=== PATIENT | male | born 1995 | race African-American/Black ===

== ENCOUNTER 2016-10-29 12:13 | Emergency (ER) | payer BC ==
--- NOTE | 2016-10-29 12:26 | ER Document Report ---
ED Medical Screen (RME) - General Stated Complaint: ABDOMINAL PAIN, BODY ACHES Notes: 21 yo male c/o acute onset mid abdominal pain, diarrhea, fever x 2 days. no chronic illness. TRAVEL OUTSIDE OF THE [place] IN LAST 30 DAYS: No - Related Data Allergies/Adverse Reactions: fresh fruit Allergy (Intermediate, Uncoded 09/08/15 18:43) Swelling of Throat Past Medical History Pulmonary Medical History: Reports: Hx Asthma - childhood Musculoskeltal Medical History: Reports Hx Musculoskeletal Trauma Past Surgical History: Reports: Hx Myringotomy, Hx Oral Surgery - bx of mouth - Immunizations Hx Diphtheria, Pertussis, Tetanus Vaccination: Yes Physical Exam - Vital signs Vitals: Temp Pulse Resp BP Pulse Ox 97.8 F 80 16 142/94 H 100 10/29/16 12:23 10/29/16 12:23 10/29/16 12:23 10/29/16 12:23 10/29/16 12:23 Course - Vital Signs Vital signs: Temp Pulse Resp BP Pulse Ox 97.8 F 80 16 142/94 H 100 10/29/16 12:23 10/29/16 12:23 10/29/16 12:23 10/29/16 12:23 10/29/16 12:23
[2016-10-29 13:27] LABS: ABSOLUTE EOSINOPHILS # (AUTO) 0.1 10^3/uL (0.0-0.6); ABSOLUTE LYMPHOCYTES (AUTO) 0.9 10^3/uL (0.5-4.7); ABSOLUTE MONOCYTES (AUTO) 0.5 10^3/uL (0.1-1.4); ABSOLUTE NEUT (AUTO) 2.8 10^3/uL (1.7-8.2); BASOPHILS % (AUTO) 0.4 % (0-2); EOSINOPHILS % (AUTO) 2.8 % (0-6); HEMATOCRIT 45.7 % (37.9-51.0); HEMOGLOBIN 14.8 g/dL (13.5-17.0); HGB HCT DIFFERENCE -1.3; LYMPHOCYTES % (AUTO) 20.8 % (13-45); MEAN CORPUSCULAR HEMOGLOBIN 30.5 pg (27.0-33.4); MEAN CORPUSCULAR HGB CONC 32.5 g/dL (32.0-36.0); MEAN CORPUSCULAR VOLUME 94 fl (80-97); MONOCYTES % (AUTO) 10.6 % (3-13); RED BLOOD COUNT 4.86 10^6/uL (4.35-5.55); RED CELL DISTRIBUTION WIDTH 12.8 % (11.5-14.0); SEGMENTED NEUTROPHILS % (AUTO) 65.4 % (42-78); WHITE BLOOD COUNT 4.3 10^3/uL (4.0-10.5)
[2016-10-29 13:45] LABS: ALANINE AMINOTRANSFERASE 66 U/L (21-72); ALBUMIN 4.2 g/dL (3.5-5.0); ALKALINE PHOSPHATASE 42 U/L (38-126); ANION GAP 10 (5-19); ASPARTATE AMINO TRANSFERASE 40 U/L (17-59); BILIRUBIN,TOTAL 2.1 mg/dL (0.2-1.3); BLOOD UREA NITROGEN 11 mg/dL (7-20); CALCIUM 9.7 mg/dL (8.4-10.2); CARBON DIOXIDE 32 mmol/L (22-30); CHLORIDE 99 mmol/L (98-107); CREATININE RESULT 1.15 mg/dL (0.52-1.25); GLUCOSE 80 mg/dL (75-110); POTASSIUM 4.3 mmol/L (3.6-5.0); SODIUM 141.2 mmol/L (137-145); TOTAL PROTEIN 7.8 g/dL (6.3-8.2)
[2016-10-29 13:56] LABS: APPEARANCE,URINE CLEAR; BILIRUBIN,URINE NEGATIVE (NEGATIVE); GLUCOSE, URINE NEGATIVE (NEGATIVE); KETONES,URINE TRACE mg/dL (NEGATIVE); LEUKOCYTE ESTERASE,URINE NEGATIVE (NEGATIVE); NITRITE,URINE NEGATIVE (NEGATIVE); PROTEIN,URINE NEGATIVE (NEGATIVE); URINE SPECIFIC GRAVITY 1.017; UROBILINOGEN,URINE NEGATIVE mg/dL (<2.0)
--- NOTE | 2016-10-29 14:32 | ER Document Report ---
ED General - General Chief Complaint: Abdominal Pain Stated Complaint: ABDOMINAL PAIN, BODY ACHES TRAVEL OUTSIDE OF THE [place] IN LAST 30 DAYS: No - HPI Patient complains to provider of: diarrhea abdominal pain Notes: Is coming in with abdominal pain diarrhea started approximately a few hours prior to his arrival here. Patient states multiple sick contacts at his workplace. Patient denies fevers chills nausea vomiting. Patient denies any recent antibiotics use. Patient otherwise is nontoxic looking upon his evaluation. - Related Data Allergies/Adverse Reactions: fresh fruit Allergy (Intermediate, Uncoded 09/08/15 18:43) Swelling of Throat Past Medical History - Social History Smoking Status: Unknown if Ever Smoked Family History: DM, Malignancy Pulmonary Medical History: Reports: Hx Asthma - childhood Musculoskeltal Medical History: Reports Hx Musculoskeletal Trauma Past Surgical History: Reports: Hx Myringotomy, Hx Oral Surgery - bx of mouth - Immunizations Hx Diphtheria, Pertussis, Tetanus Vaccination: Yes Review of Systems - Review of Systems Constitutional: No symptoms reported EENT: No symptoms reported Cardiovascular: No symptoms reported Respiratory: No symptoms reported Gastrointestinal: Abdominal pain, Diarrhea Genitourinary: No symptoms reported Male Genitourinary: No symptoms reported Musculoskeletal: No symptoms reported Skin: No symptoms reported Hematologic/Lymphatic: No symptoms reported Neurological/Psychological: No symptoms reported Physical Exam - Vital signs Vitals: Temp Pulse Resp BP Pulse Ox 97.8 F 80 16 142/94 H 100 10/29/16 12:23 10/29/16 12:23 10/29/16 12:23 10/29/16 12:23 10/29/16 12:23 Interpretation: Normal - General General appearance: Appears well, Alert - HEENT Head: Normocephalic, Atraumatic Eyes: Normal Pupils: PERRL - Respiratory Respiratory status: No respiratory distress Chest status: Nontender Breath sounds: Normal Chest palpation: Normal - Cardiovascular Rhythm: Regular Heart sounds: Normal auscultation Murmur: No - Abdominal Inspection: Normal Distension: No distension Bowel sounds: Normal Tenderness: Nontender Organomegaly: No organomegaly - Back Back: Normal, Nontender - Extremities General upper extremity: Normal inspection, Nontender, Normal color, Normal ROM , Normal temperature General lower extremity: Normal inspection, Nontender, Normal color, Normal ROM , Normal temperature, Normal weight bearing. No: Chai's sign - Neurological Neuro grossly intact: Yes Cognition: Normal Orientation: AAOx4 [place] Coma Scale Eye Opening: Spontaneous [place] Coma Scale Verbal: Oriented [place] Coma Scale Motor: Obeys Commands [place] Coma Scale Total: 15 Speech: Normal Motor strength normal: LUE, RUE, LLE, RLE Sensory: Normal - Psychological Associated symptoms: Normal affect, Normal mood - Skin Skin Temperature: Warm Skin Moisture: Dry Skin Color: Normal Course - Re-evaluation Re-evalutation: 10/29/16 16:04 Lab work shows no critical etiology. Patient will be treated symptomatically. Patient was given a work note patient discharged home - Vital Signs Vital signs: Temp Pulse Resp BP Pulse Ox 99 F 77 18 129/75 H 99 10/29/16 14:40 10/29/16 14:40 10/29/16 14:40 10/29/16 14:40 10/29/16 14:40 - Laboratory Result Diagrams: 10/29/16 13:05 10/29/16 13:05 Laboratory results interpreted by me: 10/29/16 10/29/16 13:05 13:05 Carbon Dioxide 32 H Total Bilirubin 2.1 H Urine Ketones TRACE H Urine Blood SMALL H Discharge - Discharge Clinical Impression: Abdominal pain Qualifiers: Abdominal location: generalized Qualified Code(s): R10.84 - Generalized abdominal pain Diarrhea Qualifiers: Diarrhea type: unspecified type Qualified Code(s): R19.7 - Diarrhea, unspecified Condition: Good Disposition: HOME, SELF-CARE Instructions: Abdominal Pain ([facility]), Diarrhea, Nonspecific ([facility]) Additional Instructions: Please take medication as prescribed. Return to the ER symptoms worsen. Follow -up with your primary care provider. Prescriptions: Dicyclomine HCl [Bentyl 20 mg Tablet] 20 mg PO QID #30 tablet Promethazine HCl [Phenergan 25 mg Tablet] 1 - 2 tab PO Q6H PRN #20 tablet PRN Reason: Forms: Return to Work
[2016-10-29 15:10] VITALS: BP 129/75
== END 2016-10-29 14:40 | disposition home or self-care (01) ==
LOC: ER 12:13
DX: R10.84 Generalized abdominal pain (principal); R19.7 Diarrhea, unspecified; Z91.018 Allergy to other foods
CPT/HCPCS: 36415; 80053; 81001; 85025; 99284

== ENCOUNTER 2017-10-13 13:06 | Emergency (ER) | payer SELFPAY ==
--- NOTE | 2017-10-13 14:31 | ER Document Report ---
ED Skin Rash/Insect Bite/Abscs - General Chief Complaint: Rash Stated Complaint: RASH Time Seen by Provider: 10/13/17 14:02 Mode of Arrival: Ambulatory Information source: Patient TRAVEL OUTSIDE OF THE [place] IN LAST 30 DAYS: No - HPI Patient complains to provider of: Skin rash/lesion Onset: Other Notes: 22 yr old presents with a 3 weeks hx of a rash to left eye. Reports rash is itchy. rash has almost faded.has tried otc creams without full relief. denies cp , sob, n/v/d. Patient reports that he just acquired a new puppy. Reports he has seasonal allergies but does not take any roet-eyq-hugmohm medications. Denies any worsening of rash. Denies any drainage from rash. denies new foods, new mediations or new laundry detergent. denies fevers and chills. denies rash itches at night. Has been around family members during the holiday season for the last 3 weeks. hx of eczema as a child. - Related Data Allergies/Adverse Reactions: fresh fruit Allergy (Intermediate, Uncoded 10/13/17 13:08) Swelling of Throat Past Medical History - General Information source: Patient - Social History Smoking Status: Never Smoker Frequency of alcohol use: Social Family History: DM, Malignancy Patient has suicidal ideation: No Patient has homicidal ideation: No Pulmonary Medical History: Reports: Hx Asthma - childhood Renal/ Medical History: Denies: Hx Peritoneal Dialysis Musculoskeltal Medical History: Reports Hx Musculoskeletal Trauma Past Surgical History: Reports: Hx Myringotomy, Hx Oral Surgery - bx of mouth - Immunizations Hx Diphtheria, Pertussis, Tetanus Vaccination: Yes Review of Systems - Review of Systems Constitutional: See HPI Cardiovascular: No symptoms reported Respiratory: No symptoms reported Skin: See HPI, Rash -: Yes All other systems reviewed and negative Physical Exam - Vital signs Vitals: Temp Pulse Resp BP Pulse Ox 99.3 F 89 16 148/88 H 100 10/13/17 13:15 10/13/17 13:15 10/13/17 13:15 10/13/17 13:15 10/13/17 13:15 - Respiratory Respiratory status: No respiratory distress Chest status: Nontender Breath sounds: Normal Chest palpation: Normal - Cardiovascular Rhythm: Regular Heart sounds: Normal auscultation Pulses: Normal: Radial - Skin Skin Temperature: Warm Skin Moisture: Dry Skin Color: Normal Location of irregularity: Face - 2cm x 2cm area maculoapular rash. no erythema, no induration, swelling, satellite lesions or burrowing on trunk. no weeping ot drainage. no central clearing. Course - Vital Signs Vital signs: Temp Pulse Resp BP Pulse Ox 99.3 F 89 16 148/88 H 100 10/13/17 13:15 10/13/17 13:15 10/13/17 13:15 10/13/17 13:15 10/13/17 13:15 Discharge - Discharge Clinical Impression: Contact dermatitis Qualifiers: Contact dermatitis type: unspecified Contact dermatitis trigger: unspecified trigger Qualified Code(s): L25.9 - Unspecified contact dermatitis, unspecified cause Condition: Good Disposition: HOME, SELF-CARE Instructions: Contact Dermatitis ([facility]) Additional Instructions: Use cream as directed, use prudently around eyes for no longer than 4 days. Take prednisone as directed. Avoid any irritants. Take xckz-ose-amykwwe loratadine as directed for history of seasonal allergies. Monitor for any new laundry detergents, lotions, soaps, etc. follow-up with primary care provider within 1 week. Discussed the need to return to the ER for any new or worsening sx. Patient understands to take the Rx as directed. All questions answered. Patient comfortable with the decision to go home. Prescriptions: Loratadine 10 mg PO DAILY #30 tab.rapdis Prednisone 20 mg PO BID #10 tablet Triamcinolone Acetonide 15 gm TP BID #1 cream..g. Referrals: MARK PATIÑO MD [COMMUNITY BASED STAFF] - Follow up as needed
[2017-10-13 14:44] VITALS: BP 130/64
== END 2017-10-13 14:44 | disposition home or self-care (01) ==
LOC: ER 13:06
DX: L25.9 Unspecified contact dermatitis, unspecified cause (principal)
CPT/HCPCS: 99282

== ENCOUNTER 2017-12-13 16:24 | Emergency (ER) | payer SELFPAY ==
[2017-12-13 16:36] VITALS: BP 137/72
--- NOTE | 2017-12-13 17:12 | ER Document Report ---
HPI - HPI Pain Level: 1 Context: Patient is a 22-year-old male who presents emergency department with a rash on his face that is been persistent. He was diagnosed with contact dermatitis in October sent home on topical steroid cream and allergy medication which he states that there is been some improvement regarding the area over his nose but that the border has been well-defined. He has not followed up with primary care regarding this. He states it is not itchy, does not cause any pain, denies any burning, denies any issues with vision. Past Medical History - Social History Smoking Status: Never Smoker Chew tobacco use (# tins/day): No Frequency of alcohol use: Occasional Drug Abuse: None Family History: DM, Malignancy Patient has suicidal ideation: No Patient has homicidal ideation: No Pulmonary Medical History: Reports: Hx Asthma - childhood Renal/ Medical History: Denies: Hx Peritoneal Dialysis Musculoskeltal Medical History: Reports Hx Musculoskeletal Trauma Past Surgical History: Reports: Hx Myringotomy, Hx Oral Surgery - bx of mouth - Immunizations Hx Diphtheria, Pertussis, Tetanus Vaccination: Yes Vertical Provider Document - CONSTITUTIONAL Agree With Documented VS: Yes Notes: PHYSICAL EXAM GENERAL: Alert, interacts well. HEAD: Normocephalic, atraumatic. EYES: Pupils equal, round, and reactive to light. Extraocular movements intact. ENT: Oral mucosa moist, tongue midline. NEUROLOGICAL: Alert and oriented x4. Normal speech. PSYCH: Normal affect, normal mood. SKIN: Warm, dry, normal turgor. Rash is located the patient it is along the patient's nose extending under the left eye over the nasal bridge and under the right eye and extending up on in between bilateral eyebrows not extending over the eyelids. Normal in color with macular papular elevated border along the edges - INFECTION CONTROL TRAVEL OUTSIDE OF THE [place] IN LAST 30 DAYS: No - RESPIRATORY O2 Sat by Pulse Oximetry: 99 Course - Re-evaluation Re-evalutation: Will treat with a topical antifungal with instructions to follow-up with patient is a 22-year-old male who is hemodynamically stable, no acute distress and afebrile. Presentation today is consistent with a fungal cause likely due to tinea corporis origin. Dermatology in 2-4 weeks if symptoms do not improve. Otherwise discussed symptoms to be aware of indicating return to the emergency department and patient is stable for discharge home and agreeable to plan. - Vital Signs Vital signs: Temp Pulse Resp BP Pulse Ox 98.4 F 79 17 137/72 H 99 12/13/17 16:35 12/13/17 16:35 12/13/17 16:35 12/13/17 16:35 12/13/17 16:35 Discharge - Discharge Clinical Impression: Tinea corporis Condition: Good Disposition: HOME, SELF-CARE Instructions: Skin Fungus ([facility]) Additional Instructions: Cream: Apply to affected area once daily for 1-3 weeks, until symptoms resolved. If no improvement, follow up with dermatology Prescriptions: Terbinafine [Lamisil At] 12 gm TP ASDIR PRN #1 gel..gm. PRN Reason: Referrals: RAYMOND WATKINS DO [ACTIVE STAFF] - Follow up in 1 month
== END 2017-12-13 17:22 | disposition home or self-care (01) ==
LOC: ER 16:24
DX: B35.4 Tinea corporis (principal)
CPT/HCPCS: 99282

== ENCOUNTER 2018-01-04 14:24 | Emergency (ER) | payer OTHER ==
[2018-01-04] MEDS ORDERED: DEXAMETHASONE SOD PHOS INJ 10 MG/1 ML VIAL IM ONE (15:04)
[2018-01-04] MEDS ORDERED: KETOROLAC TROMETHAMINE 60 MG/2 ML SDV IM ONE (15:04)
[2018-01-04] MEDS ORDERED: PSEUDOEPHEDRINE HCL 30 MG TABLET PO ONE (15:05)
[2018-01-04] MEDS ORDERED: LORATADINE 10 MG TABLET PO ONE (15:05)
[2018-01-04] MEDS ORDERED: GUAIFENESIN 600 MG TABLET.SA PO ONE (15:05)
--- NOTE | 2018-01-04 15:17 | ER Document Report ---
ED ENT - General Chief Complaint: Sore Throat Stated Complaint: SORE THROAT Time Seen by Provider: 01/04/18 14:57 Mode of Arrival: Ambulatory Information source: Patient Notes: 22-year-old male presents to ED for complete cough and congestion cold symptoms with a sore throat that started Thursday. He states the sore throat got much worse today. He has not had a fever. He is in no acute distress he is speaking in full sentences alert and oriented walks with a steady gait. TRAVEL OUTSIDE OF THE [place] IN LAST 30 DAYS: No - HPI Onset: Other Onset/Duration: - Thursday Quality of pain: Achy, Dull Severity: Moderate Pain Level: 3 Context: Recent Illness Location of pain: Nose, Sinus, Throat Associated symptoms: Congestion, Cough, Runny nose, Sinus pain, Sinus drainage, Sore throat Similar symptoms previously: Yes - Related Data Allergies/Adverse Reactions: fresh fruit Allergy (Intermediate, Uncoded 12/13/17 16:32) Swelling of Throat Past Medical History - General Information source: Patient - Social History Smoking Status: Never Smoker Cigarette use (# per day): No Chew tobacco use (# tins/day): No Smoking Education Provided: No Frequency of alcohol use: Occasional Drug Abuse: None Occupation: Childcare Lives with: Spouse/Significant other Family History: Arthritis, DM, Malignancy. denies: CAD, COPD, CVA, Hyperlipidemia, Hypertension, Thyroid Disfunction Patient has suicidal ideation: No Patient has homicidal ideation: No Pulmonary Medical History: Reports: Hx Asthma - childhood EENT Medical History: Reports: None Endocrine Medical History: Reports: None Renal/ Medical History: Reports: None Malignancy Medical History: Reports None Musculoskeltal Medical History: Reports Hx Musculoskeletal Deformity, Reports Hx Musculoskeletal Trauma Skin Medical History: Reports None Psychiatric Medical History: Reports: None Traumatic Medical History: Reports: Hx Fractures - Left knee Infectious Medical History: Reports: None Past Surgical History: Reports: Hx Myringotomy, Hx Oral Surgery - bx of mouth, Hx Orthopedic Surgery - Left knee torn patella tendon, Other - Tear duct surgery - Immunizations Hx Diphtheria, Pertussis, Tetanus Vaccination: Yes Review of Systems - Review of Systems Constitutional: Recent illness EENT: Nose discharge, Sinus pressure, Sinus discharge, Throat pain Cardiovascular: No symptoms reported Respiratory: No symptoms reported Gastrointestinal: No symptoms reported Genitourinary: No symptoms reported Male Genitourinary: No symptoms reported Musculoskeletal: No symptoms reported Skin: No symptoms reported Hematologic/Lymphatic: No symptoms reported Neurological/Psychological: No symptoms reported -: Yes All other systems reviewed and negative Physical Exam - Vital signs Vitals: Temp Pulse Resp BP Pulse Ox 99.4 F 93 18 142/79 H 97 01/04/18 14:29 01/04/18 14:29 01/04/18 14:29 01/04/18 14:29 01/04/18 14:29 Interpretation: Normal - General General appearance: Appears well, Alert - HEENT Head: Normocephalic, Atraumatic Eyes: Normal Pupils: PERRL Ears: Normal External canal: Normal Tympanic membrane: Normal Sinus: Normal Nasal: Purulent discharge, Swelling Mouth/Lips: Normal Mucous membranes: Normal Pharynx: Erythema, Post nasal drainage. No: Exudate, Peritonsillar abscess, Retropharyngeal abscess, Tonsillar hypertrophy, Potential airway comprom. Neck: Normal - Respiratory Respiratory status: No respiratory distress Chest status: Nontender Breath sounds: Normal Chest palpation: Normal - Cardiovascular Rhythm: Regular Heart sounds: Normal auscultation Murmur: No - Abdominal Inspection: Normal Distension: No distension Bowel sounds: Normal Tenderness: Nontender Organomegaly: No organomegaly - Back Back: Normal, Nontender - Extremities General upper extremity: Normal inspection, Nontender, Normal color, Normal ROM , Normal temperature General lower extremity: Normal inspection, Nontender, Normal color, Normal ROM , Normal temperature, Normal weight bearing. No: Chai's sign - Neurological Neuro grossly intact: Yes Cognition: Normal Orientation: AAOx4 [place] Coma Scale Eye Opening: Spontaneous [place] Coma Scale Verbal: Oriented [place] Coma Scale Motor: Obeys Commands [place] Coma Scale Total: 15 Speech: Normal Motor strength normal: LUE, RUE, LLE, RLE Sensory: Normal - Psychological Associated symptoms: Normal affect, Normal mood - Skin Skin Temperature: Warm Skin Moisture: Dry Skin Color: Normal Course - Re-evaluation Re-evalutation: 01/04/18 20:20 Patient was treated with Claritin and Sudafed Mucinex with cough cold congestion Toradol Decadron for sore throat. Patient strep test was negative. He was discharged home with instructions on cough cold congestion. - Vital Signs Vital signs: Temp Pulse Resp BP Pulse Ox 99.4 F 87 18 124/80 97 01/04/18 16:31 01/04/18 16:31 01/04/18 16:31 01/04/18 16:31 01/04/18 16:31 Discharge - Discharge Clinical Impression: Sore throat (viral) URI (upper respiratory infection) Qualifiers: URI type: unspecified URI Qualified Code(s): J06.9 - Acute upper respiratory infection, unspecified Condition: Stable Disposition: HOME, SELF-CARE Instructions: Family Physicians / Practices Additional Instructions: UPPER RESPIRATORY ILLNESS: You have a viral infection of the respiratory passages -- a "cold." This common infection causes nasal congestion, drainage, and often sore throat and cough. It is highly contagious. The disease usually lasts about 10 to 14 days. There is no "cure" for the viral infection -- it must run its course. If there is a complication, such as bacterial infection in the nose, sinuses, middle ear, or bronchial tubes, antibiotics may be required. The antibiotics won't affect the virus. Drink plenty of fluids. A humidifier may help. An expectorant medication or decongestant may make you more comfortable. Use acetaminophen or ibuprofen for fever or aches. See the doctor if fever persists over two days, if there is any significant worsening of your symptoms, or if you simply fail to improve as expected. SORE THROAT: Sore throats may be caused by viruses, bacteria, or fungi. Most are due to a virus, and must get better on their own. Bacterial sore throats, particularly those due to "strep," need treatment with antibiotics. If an antibiotic is prescribed, be sure to take the medication for a full 10 days. Failure to take the antibiotic can result in complications such as rheumatic fever. Sometimes, an injection of antibiotics is given instead of pills or liquid. This single "shot" is equal in effectiveness to the oral medication. To relieve symptoms, take acetaminophen for pain. Sip clear liquids frequently, or eat popsicles or ice chips. Anesthetic sprays or lozenges may help. Make sure the air in the room is not too dry. Avoid using decongestants or antihistamines. Call the doctor if there is no improvement in two days, or if you have difficulty breathing, increasing throat pain, high fever, rash, or frequent vomiting. You were given Claritin 10 mg, Sudafed 30 mg, Mucinex 600 mg, as well as a Toradol and steroid injection for your cough cold congestion and sore throat. Your strep test is negative. This is a viral sore throat whenever we do a strep culture we always send a throat culture just to ensure that if the test is positive any kind of bacteria we will notify you and put you on antibiotic but at this time it does appear to be a viral sore throat. The medications I gave you are [id number] the Claritin and Sudafed Mucinex. Sudafed you will have to ask the pharmacist for. STEROID MEDICATION: You have been given a medicine of the cortisone/steroid class. This medication is used to control inflammation or allergy. It is usually only given for a short period of time, until the acute process subsides. There are usually no side effects from short-term use of cortisone-like medications. Some persons feel an increased sense of well-being and are not sleepy at bedtime. Long-term use of cortisone medications is best avoided, unless required for a severe condition. If your condition does not remit, or relapses after the course of corticosteroid medication, you should consult your physician. Toradol Injection You have been given an injection of ketorolac tromethamine (Toradol). This is an excellent, safe drug for pain control. It also has potent antiinflammatory action. You should have significant pain relief within about one hour. Toradol is not addicting and is non-sedating. It does not interfere with driving or work. Call or return if you develop itching, hives, shortness of breath, or rash. DECONGESTANT MEDICATION: A decongestant medicine has been suggested. Often this medicine is combined in the same tablet with an antihistamine or expectorant. This type of medicine is helpful in treating a bad cold or sinus condition, as well as in treatment of the nasal congestion of hay fever. It is not of much benefit for lung infections. Decongestant medicines are related to stimulants. They can cause an increase in blood pressure and heart rate. Persons with heart disease and high blood pressure should not take decongestants without discussing this with the physician. If you develop palpitations, chest pain, headache, or tremors, stop the medicine and consult your physician. COUGH-SUPPRESSANT & EXPECTORANT MEDICATION: You are to use a cough medication as needed for relief of symptoms. This medicine is a combination of an expectorant (to make the mucous thinner and more easily "coughed up") and a cough suppressant (to reduce the frequency of coughing). The cough-suppressant medicine is related to narcotics. You may experience mild nausea and sleepiness. Some patients who are very sensitive to narcotics may have stomach pain from this medicine. Taking the medicine with food reduces these side effects. Do not drive or work with machinery until you know how this medicine affects you. The expectorant should have no side effects. Iodine-containing expectorants (such as organidin) should not be taken by persons with active thyroid disease unless approved by your doctor. Call the doctor if you develop shortness of breath, hives, rash, itching, lightheadedness, or severe nausea and vomiting. USE OF ACETAMINOPHEN (Tylenol): Acetaminophen may be taken for pain relief or fever control. It's much safer than aspirin, offering a wider range of "safe" dosages. It is safe during . Some brand names are Tylenol, Panadol, Datril, Anacin 3, Tempra, and Liquiprin. Acetaminophen can be repeated every four hours. The following are maximum recommended dosages: >89 pounds or adults 650 mg to 900 mg Acetaminophen can be repeated every four hours. Maximum dose not to exceed 4000 mg a day. FOLLOW-UP CARE: If you have been referred to a physician for follow-up care, call the physician s office for an appointment as you were instructed or within the next two days. If you experience worsening or a significant change in your symptoms, notify the physician immediately or return to the Emergency Department at any time for re-evaluation. Forms: Elevated Blood Pressure, Return to Work
[2018-01-04 16:41] VITALS: BP 124/80
== END 2018-01-04 16:40 | disposition home or self-care (01) ==
LOC: ER 14:24
DX: J06.9 Acute upper respiratory infection, unspecified (principal); J02.9 Acute pharyngitis, unspecified; B97.89 Other viral agents as the cause of diseases classified elsewhere; R05 Cough; R09.81 Nasal congestion; R09.89 Other specified symptoms and signs involving the circulatory and respiratory systems; J45.909 Unspecified asthma, uncomplicated
CPT/HCPCS: 87070; 87880; 96372; 99283

== ENCOUNTER 2018-10-17 17:39 | Emergency (ER) | payer OTHER ==
[2018-10-17 20:07] LABS: ABSOLUTE BASOPHILS # (AUTO) 0.1 10^3/uL (0.0-0.2); ABSOLUTE EOSINOPHILS # (AUTO) 0.3 10^3/uL (0.0-0.6); ABSOLUTE MONOCYTES (AUTO) 0.8 10^3/uL (0.1-1.4); ABSOLUTE NEUT (AUTO) 4.6 10^3/uL (1.7-8.2); BASOPHILS % (AUTO) 1.2 % (0-2); EOSINOPHILS % (AUTO) 3.3 % (0-6); HEMATOCRIT 40.6 % (37.9-51.0); HEMOGLOBIN 13.6 g/dL (13.5-17.0); LYMPHOCYTES % (AUTO) 25.6 % (13-45); MEAN CORPUSCULAR HGB CONC 33.5 g/dL (32.0-36.0); MEAN CORPUSCULAR VOLUME 93 fl (80-97); MONOCYTES % (AUTO) 10.3 % (3-13); PLATELET COUNT 165 10^3/uL (150-450); RED BLOOD COUNT 4.39 10^6/uL (4.35-5.55); RED CELL DISTRIBUTION WIDTH 13.2 % (11.5-14.0); SEGMENTED NEUTROPHILS % (AUTO) 59.6 % (42-78); TOTAL CELLS COUNTED % (AUTO) 100 %; WHITE BLOOD COUNT 7.7 10^3/uL (4.0-10.5)
[2018-10-17] MEDS ORDERED: KETOROLAC TROMETHAMINE 60 MG/2 ML SDV IM ONE (20:09)
[2018-10-17 20:21] LABS: ALANINE AMINOTRANSFERASE 27 U/L (21-72); ALKALINE PHOSPHATASE 45 U/L (38-126); ANION GAP 9 (5-19); ASPARTATE AMINO TRANSFERASE 25 U/L (17-59); BILIRUBIN,DIRECT 0.1 mg/dL (0.0-0.4); BILIRUBIN,TOTAL 0.6 mg/dL (0.2-1.3); BLOOD UREA NITROGEN 11 mg/dL (7-20); CARBON DIOXIDE 26 mmol/L (22-30); CHLORIDE 105 mmol/L (98-107); GLUCOSE 99 mg/dL (75-110); LIPASE 27.2 U/L (23-300); SODIUM 139.8 mmol/L (137-145)
--- NOTE | 2018-10-17 21:42 | RADIOLOGY REPORT (SQ) ---
EXAM DESCRIPTION: US ABDOMEN LIMITED COMPLETED DATE/TME: 10/17/2018 19:34 CLINICAL HISTORY: 23 years, Male, upper abdominal pain Findings: Pancreas is not visualized due to shadowing. Aorta and IVC are within normal limits. Liver is within normal limits with no focal masses. No significant biliary dilatation with CBD measuring 2 mm. Gallbladder is unremarkable with no evidence for calculus, wall thickening or pericholecystic fluid. No right upper quadrant ascites. No right hydronephrosis. IMPRESSION: No evidence for cholelithiasis or cholecystitis.
--- NOTE | 2018-10-17 22:58 | ER Document Report ---
ED General - General Chief Complaint: Upper Abdominal Pain Stated Complaint: ABDOMINAL PAIN Time Seen by Provider: 10/17/18 19:25 Notes: Patient is a 23-year-old male without past medical history who presents with 2 days of intermittent right-sided abdominal pain. Patient states that the pain is along the right upper middle and lower abdomen. He states that it is a cramping, intermittently stabbing pain worsened by moving or bending over. Nothing improves the pain. Denies a history of similar pain in the past. He has been nauseated but has not had vomiting. No fever. No known abdominal trauma. The patient denies any history of similar symptoms in the past. He denies any prior abdominal surgical history. Denies any effect of food intake. Has not seen his primary care physician regarding today's concerns. TRAVEL OUTSIDE OF THE [place] IN LAST 30 DAYS: No - Related Data Allergies/Adverse Reactions: fresh fruit Allergy (Intermediate, Uncoded 12/13/17 16:32) Swelling of Throat Past Medical History - General Information source: Patient - Social History Smoking Status: Never Smoker Frequency of alcohol use: None Drug Abuse: None Lives with: Spouse/Significant other Family History: Arthritis, DM, Malignancy. denies: CAD, COPD, CVA, Hyperlipidemia, Hypertension, Thyroid Disfunction Patient has suicidal ideation: No Patient has homicidal ideation: No Pulmonary Medical History: Reports: Hx Asthma - childhood Renal/ Medical History: Denies: Hx Peritoneal Dialysis Musculoskeletal Medical History: Reports Hx Musculoskeletal Deformity, Reports Hx Musculoskeletal Trauma Traumatic Medical History: Reports: Hx Fractures - Left knee Past Surgical History: Reports: Hx Myringotomy, Hx Oral Surgery - bx of mouth, Hx Orthopedic Surgery - Left knee torn patella tendon, Other - Tear duct surgery - Immunizations Hx Diphtheria, Pertussis, Tetanus Vaccination: Yes Review of Systems - Review of Systems Notes: Constitutional: Negative for fever. HENT: Negative for sore throat. Eyes: Negative for visual changes. Cardiovascular: Negative for chest pain. Respiratory: Negative for shortness of breath. Gastrointestinal: Positive for abdominal pain and nausea Genitourinary: Negative for dysuria. Musculoskeletal: Negative for back pain. Skin: Negative for rash. Neurological: Negative for headaches, weakness or numbness. 10 point ROS negative except as marked above and in HPI. Physical Exam - Vital signs Vitals: Temp Pulse Resp BP Pulse Ox 99.4 F 101 H 16 146/87 H 98 10/17/18 17:45 10/17/18 17:45 10/17/18 17:45 10/17/18 17:45 10/17/18 17:45 Interpretation: Tachycardic - Resolved at the time of my assessment Notes: PHYSICAL EXAMINATION: GENERAL: Well-appearing, well-nourished and in no acute distress. HEAD: Atraumatic, normocephalic. EYES: Pupils equal round and reactive to light, extraocular movements intact, sclera anicteric, conjunctiva are normal. ENT: nares patent, oropharynx clear without exudates. Moist mucous membranes. NECK: Normal range of motion, supple without lymphadenopathy LUNGS: Breath sounds clear to auscultation bilaterally and equal. No wheezes rales or rhonchi. HEART: Regular rate and rhythm without murmurs ABDOMEN: Soft, mild tenderness the right upper, right middle and right lower abdomen without localization to any one quadrant, normoactive bowel sounds. No guarding, no rebound. No masses appreciated. EXTREMITIES: Normal range of motion, no pitting or edema. No cyanosis. NEUROLOGICAL: No focal neurological deficits. Moves all extremities spontaneously and on command. PSYCH: Normal mood, normal affect. SKIN: Warm, Dry, normal turgor, no rashes or lesions noted. Course - Re-evaluation Re-evalutation: 10/17/18 22:56 Patient is a well-appearing 23-year-old male who presents complaining of 2 days of intermittent right-sided abdominal pain. Describes it as a pain along the entirety of the right side of his. At time of my evaluation the patient is well in appearance and in no distress. At time of my evaluation he no longer has any tachycardia although initially his heart rate was 101. He is afebrile. On abdominal exam he does have some diffuse tenderness to the right upper middle and lower abdomen without rebound or guarding. No flank tenderness. He has no greater tenderness to the right lower quadrant in the right middle or right upper abdomen. Right upper quadrant ultrasound and labs are completely unremarkable. No leukocytosis. I have had a risks and benefits conversation with the patient regarding CT imaging of the abdomen and pelvis at this time. 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 We discussed the risks of radiation to the abdomen and pelvis. We discussed the alternative of close follow-up with their primary care physician for a recheck of the abdomen within 24 hours as well as reasons to return to the emergency department. After this conversation, the patient and his have elected to avoid CT imaging of the abdomen and pelvis at this time. They have capacity. They have verbalized the importance of close follow-up as well as reasons to return to the emergency department including worsening abdominal pain, fever, persistent vomiting, or any other symptoms that are worrisome to them. - Vital Signs Vital signs: Temp Pulse Resp BP Pulse Ox 98.1 F 61 17 133/78 H 97 10/17/18 23:09 10/17/18 23:09 10/17/18 23:09 10/17/18 23:09 10/17/18 23:09 - Laboratory Result Diagrams: 10/17/18 19:55 10/17/18 19:55 - Diagnostic Test Radiology reviewed: Reports reviewed Discharge - Discharge Clinical Impression: Right sided abdominal pain, Nausea Condition: Good Disposition: HOME, SELF-CARE Instructions: Observation for Appendicitis ([facility]) Additional Instructions: You were seen today for right-sided abdominal pain. Your blood work and right upper quadrant ultrasound are normal today. We did discuss the possibility of acute appendicitis as an alternative possibility of your abdominal pain. After our conversation, you have elected to go home and be monitored and return should you develop any worsening of your abdominal pain, vomiting, fever of greater than 100.4 F, or any worsening of any kind. He may take ibuprofen or Tylenol per box instructions as needed for pain. Please have a very low threshold to return to the emergency department. Forms: Return to Work
[2018-10-17 23:09] VITALS: BP 133/78
== END 2018-10-17 23:09 | disposition home or self-care (01) ==
LOC: ER 17:39
DX: R10.11 Right upper quadrant pain (principal); R10.31 Right lower quadrant pain; R11.0 Nausea; Z91.018 Allergy to other foods
CPT/HCPCS: 99284; 96372; 36415; 83690; 85025; 80053; 76705; J1885

== ENCOUNTER 2019-02-13 06:20 | Emergency (ER) | payer SELFPAY ==
[2019-02-13] MEDS ORDERED: ACETAMINOPHEN 325 MG TABLET PO ONE (08:36)
[2019-02-13 08:57] LABS: A TYPE INFLUENZA AG NEGATIVE (NEGATIVE); B INFLUENZA AG NEGATIVE (NEGATIVE)
[2019-02-13] MEDS ORDERED: AMOXICILLIN TR/POT CLAVULANATE 500-125 MG TAB PO ONE (09:10)
[2019-02-13] MEDS ORDERED: NORMAL SALINE 1000 ML 1,000 ML IV ONE (09:10)
[2019-02-13] MEDS ORDERED: IBUPROFEN 600 MG TABLET PO ONE (09:18)
[2019-02-13] MEDS ORDERED: LIDOCAINE 2% VISCOUS SOLN 20 ML UDCUP PO ONE (09:18)
[2019-02-13] MEDS ORDERED: MAG HYDROX/AL HYDROX/SIMETH SUSP 30 ML UDCUP PO ONE (09:18)
[2019-02-13] MEDS ORDERED: METOCLOPRAMIDE HCL ORAL SOLN 10 MG/10 ML UDCUP PO ONE (09:18)
--- NOTE | 2019-02-13 09:23 | ER Document Report ---
ED General - General Chief Complaint: Fever Stated Complaint: FEVER Time Seen by Provider: 02/13/19 09:02 Mode of Arrival: Ambulatory Information source: Patient, Parent Notes: 24-year-old male with no reported past medical history presents with complaint of body aches, sore throat, that started 2 days prior to arrival. Patient has not taken any medication for this. He denies ear pain, nausea, vomiting, difficulty swallowing, nasal drainage, cough, chest pain, shortness of breath, abdominal pain, back pain, dysuria, hematuria. Mother reports that the patient has had recurrent strep infections in the past. TRAVEL OUTSIDE OF THE [place] IN LAST 30 DAYS: No - HPI Onset: Other Onset/Duration: Gradual, Persistent Quality of pain: Achy, Burning Severity: Mild Associated symptoms: Body/muscle aches, Fever, Sore throat. denies: Chest pain, Nonproductive cough, Productive cough, Diarrhea, Earache, Nausea, Vomiting, Rhinnorhea, Sinus pain/drainage, Shortness of breath Exacerbated by: Denies Relieved by: Denies Similar symptoms previously: Yes Recently seen / treated by doctor: No - Related Data Allergies/Adverse Reactions: fresh fruit Allergy (Intermediate, Uncoded 02/13/19 06:23) Swelling of Throat Past Medical History - General Information source: Patient, Parent, [facility] Records - Social History Smoking Status: Never Smoker Chew tobacco use (# tins/day): No Frequency of alcohol use: Rare Drug Abuse: None Lives with: Family, Parents Family History: Arthritis, DM, Malignancy. denies: CAD, COPD, CVA, Hyperlipidemia, Hypertension, Thyroid Disfunction Patient has suicidal ideation: No Patient has homicidal ideation: No Pulmonary Medical History: Reports: Hx Asthma - childhood Renal/ Medical History: Denies: Hx Peritoneal Dialysis Musculoskeletal Medical History: Reports Hx Musculoskeletal Deformity, Reports Hx Musculoskeletal Trauma Traumatic Medical History: Reports: Hx Fractures - Left knee Past Surgical History: Reports: Hx Myringotomy, Hx Oral Surgery - bx of mouth, Hx Orthopedic Surgery - Left knee torn patella tendon, Other - Tear duct surgery - Immunizations Hx Diphtheria, Pertussis, Tetanus Vaccination: Yes Review of Systems - Review of Systems Notes: REVIEW OF SYSTEMS: CONSTITUTIONAL : Denies fever, chills, or sweats. Denies recent illness. Denies weight loss, recent hospitalizations. EENT: Denies visual changes, eye pain. Denies oral lesions, difficulty swallowing. CARDIOVASCULAR: Denies chest pain. Denies palpitations. Denies lower extremity edema. RESPIRATORY: Denies cough. Denies shortness of breath, wheezing. GASTROINTESTINAL: Denies abdominal pain or distention. Denies nausea, vomiting, or diarrhea. Denies blood in vomitus, stools, or per rectum. Denies black, tarry stools. Denies constipation. GENITOURINARY: Denies difficulty urinating, painful urination, frequency, blood in urine, testicular pain or penile discharge. MUSCULOSKELETAL: Denies back or neck pain or stiffness. Denies joint pain or swelling. SKIN: Denies rash, lesions or sores. HEMATOLOGIC : Denies easy bruising or bleeding. LYMPHATIC: Denies swollen glands. NEUROLOGICAL: Denies confusion or altered mental status. Denies loss of consciousness. Denies dizziness or lightheadedness. Denies headache. Denies weakness or paralysis. Denies problems difficulty with ambulation, slurred speech. Denies sensory loss, numbness, or tingling. Denies seizures. PSYCHIATRIC: Denies anxiety or stress. Denies depression, suicidal ideation, or Physical Exam - Vital signs Vitals: Temp Pulse Resp BP Pulse Ox 100.7 F H 120 H 20 135/79 H 95 02/13/19 07:06 02/13/19 07:06 02/13/19 07:06 02/13/19 07:06 02/13/19 07:06 - Notes Notes: PHYSICAL EXAMINATION: GENERAL: Well-appearing, well-nourished and in no acute distress. HEAD: Atraumatic, normocephalic. EYES: Pupils equal round and reactive to light, extraocular movements intact, sclera anicteric, conjunctiva are normal. ENT: Nares patent, oropharynx erythematous, tonsils 2+ with erythema and exudates, moist mucous membranes. NECK: Normal range of motion, supple positive cervical lymphadenopathy LUNGS: Breath sounds clear to auscultation bilaterally and equal. No wheezes rales or rhonchi. HEART: Regular rate and rhythm without murmurs ABDOMEN: Soft, nontender, nondistended abdomen. No guarding, no rebound. No masses appreciated. Musculoskeletal: Normal range of motion, no pitting or edema. No cyanosis. NEUROLOGICAL: Cranial nerves grossly intact. Normal speech, normal gait. Normal sensory, motor exams PSYCH: Normal mood, normal affect. SKIN: Warm, Dry, normal turgor, no rashes or lesions noted. Course - Re-evaluation Re-evalutation: 02/13/19 09:22 Laboratory 02/13/19 02/13/19 08:31 08:37 Influenza A (Rapid) NEGATIVE Influenza B (Rapid) NEGATIVE Group A Strep Rapid POSITIVE Temp Pulse Resp BP Pulse Ox 100.2 F 110 H 19 151/89 H 96 02/13/19 08:36 02/13/19 08:36 02/13/19 08:36 02/13/19 08:36 02/13/19 08:36 24-year-old male presents with complaint of sore throat, body aches. Vital signs reviewed upon arrival and patient is tachycardic, febrile. He does not appear toxic or dehydrated. He is in no acute distress. Influenza was obtained and negative for patient is positive for strep. Patient did receive a GI cocktail, Motrin, Augmentin during his ED course. Patient is tolerating fluids and has been drinking water without difficulty. - Vital Signs Vital signs: Temp Pulse Resp BP Pulse Ox 99.7 F 98 18 127/77 H 95 02/13/19 09:50 02/13/19 09:50 02/13/19 09:50 02/13/19 09:50 02/13/19 09:50 Discharge - Discharge Clinical Impression: Strep pharyngitis, Myalgia Fever Qualifiers: Fever type: unspecified Qualified Code(s): R50.9 - Fever, unspecified Condition: Good Disposition: HOME, SELF-CARE Instructions: Fever ([facility]), Myalagia (Muscle Pain) ([facility]), Strep Throat ([facility]) Additional Instructions: You have been diagnosed with strep throat based on a positive strep test. You have been treated with a dose of penicillin here in the emergency department and do not need any additional antibiotics. You have also been given a dose of steroids to help with your throat discomfort. Please continue to take ibuprofen 600 mg every 6 hours or Tylenol 1000 mg every 6 hours as needed for throat discomfort. You can also gargle with salt water. Continue to drink plenty of fluids. Follow-up with your primary care doctor in the next several days. Return if you become unable to swallow, have difficulty breathing, pass out, have persistent vomiting that prevents you from being able to tolerate fluids, or have any other symptoms that are concerning to you. Regarding Blood Pressure: Your blood pressure was noted to be greater than 120/80 at least once in the emergency room today. It is recommended that you follow-up with her primary care physician in the next week for repeat blood pressure check. The Centers for Medicare and Medicaid Services has specific recommendations regarding a person's blood pressure. There are several lifestyle modifications that are recommended in order to help lower your blood pressure. These include: Quitting smoking if you smoke. Reducing the amount of sodium in your diet. Getting regular exercise Limiting alcohol to no more than 2 drinks a day for men and one drink a day for women. Eating a healthy diet, including more fruits and vegetables, low fat dairy products, less saturated and total fat. Losing weight if you are overweight. FOLLOW-UP: Call your doctor's office and let them know your blood pressure was elevated and you were advised to get your blood pressure checked in the above time-line. If you are unable to get into your doctor's office in this time period, you can follow-up with a new physician (I have left the numbers below for a few primary care doctors affiliated with this [facility]) or return to the ER. PRIMARY CARE PHYSICIANS: Dr. Arnoldo Gandhi [address], [place] [address] [phone] Dr Gay Address: [address] [place] [address] [place] [address] Dr De Jesus Address: [address] [place] [address] , [place] [address] Prescriptions: Amox Tr/Potassium Clavulanate [Augmentin 875-125 Tablet] 1 tab PO BID 10 Days #20 tablet Ibuprofen [Motrin 600 Mg Tablet] 600 mg PO TID #15 tablet Forms: Elevated Blood Pressure, Return to Work
[2019-02-13 09:52] VITALS: BP 127/77
== END 2019-02-13 10:04 | disposition home or self-care (01) ==
LOC: ER 06:20
DX: J02.0 Streptococcal pharyngitis (principal); R50.9 Fever, unspecified; M79.10 Myalgia, unspecified site; J45.909 Unspecified asthma, uncomplicated
CPT/HCPCS: 99283; 87880; 87804; J3490